=== PATIENT | male | born 1955 | race Caucasian/White ===

== ENCOUNTER 2018-03-04 16:18 | Emergency (ER) | payer SELFPAY ==
--- NOTE | 2018-03-04 17:37 | EDM.PDOC ---
ED HPI GENERAL MEDICAL PROBLEM - General Chief Complaint: General Stated Complaint: BALANCE OFF,NUMBNESS IN FEET Time Seen by Provider: 03/04/18 17:00 Source of Information: Reports: Patient, Family History Limitations: Reports: No Limitations - History of Present Illness INITIAL COMMENTS - FREE TEXT/NARRATIVE: Isra presents today with complaints of feeling unsteady with ambulation. States he feels as though his "equilibrium is off" over the past few days. Reports associated numbness on the plantar surface of both feet. Denies any falls, seizures, or loss of consciousness. Reports a prior history of a brain tumor which was removed a number of years ago. He has not followed up with CTs as directed, and the last one was approximately four years ago. He is also concerned about a possible blood clot in his left leg. Reports that there was a large area of redness over the medial aspect above his knee, with significant lower extremity edema of the left leg. He was not seen for this, and feels that his symptoms have since resolved. - Related Data Allergies Allergy/AdvReac Type Severity Reaction Status Date / Time No Known Allergies Allergy Verified 03/04/18 16:42 Home Meds: Home Meds NK [No Known Home Meds] 03/04/18 [History] Past Medical History Cardiovascular History: Reports: High Cholesterol Musculoskeletal History: Reports: Back Pain, Chronic Neurological History: Reports: Seizure, Vertigo Psychiatric History: Reports: Anxiety, Depression Oncologic (Cancer) History: Reports: Brain - Past Surgical History GI Surgical History: Reports: Colonoscopy Neurological Surgical History: Reports: Other (See Below) Other Neurological Surgeries/Procedures: brain tumor, had chemo/radiation Oncologic Surgical History: Reports: Other (See Below) Other Oncologic Surgeries/Procedures: tumor removal in the . chemo/ radiation Social & Family History - Tobacco Use Smoking Status *Q: Never Smoker - Alcohol Use Days Per Week of Alcohol Use: 4 Number of Drinks Per Day: 2 Total Drinks Per Week: 8 - Recreational Drug Use Recreational Drug Use: No ED ROS GENERAL - Review of Systems Review Of Systems: See Below Constitutional: Reports: Weakness, Fatigue, Decreased Appetite. Denies: Fever, Chills HEENT: Reports: Glasses, Vision Change. Denies: Hearing Loss, Throat Pain, Throat Swelling Respiratory: Denies: Shortness of Breath, Pleuritic Chest Pain, Cough Cardiovascular: Reports: Palpitations. Denies: Chest Pain, Claudication, Dyspnea on Exertion Endocrine: Reports: Fatigue GI/Abdominal: Denies: Abdominal Pain, Constipation, Diarrhea, Nausea, Vomiting : Reports: Frequency, Urgency. Denies: Dysuria, Hematuria Musculoskeletal: Reports: Other (Weakness to bilateral lower extremities with ambulation, unsteadiness. ) Skin: Denies: Bruising, Rash, Erythema, Wound, Change in Color, Lesions Neurological: Reports: Numbness (Bottom of feet), Tingling (Bottom of feet), Difficulty Walking, Weakness, Gait Disturbance. Denies: Confusion, Seizure, Syncope, Trouble Speaking Psychiatric: Reports: Anxiety. Denies: Confusion, Depression Hematologic/Lymphatic: Reports: No Symptoms. Denies: Swollen Glands Immunologic: Reports: No Symptoms ED EXAM, GENERAL - Physical Exam Exam: See Below Free Text/Narrative:: Isra presents today for complaints of feeling unsteady with ambulation. He also complains of generalized weakness, not feeling like himself. He denies fever, chills, headache or change in bowel/bladder habits. He reports a past history of brain tumor. Exam Limited By: No Limitations General Appearance: Alert, No Apparent Distress, Anxious Eye Exam: Right Eye: Other (Very slight nystagmus noted with left eye), Bilateral Eye: EOMI, Normal Fundi, Normal Inspection, PERRL Ears: Normal Canal, Hearing Grossly Normal, Normal TMs Ear Exam: Bilateral Ear: Auricle Normal, Canal Normal, TM normal Throat/Mouth: Normal Inspection, Normal Oropharynx, Normal Voice, No Airway Compromise Head: Atraumatic, Normocephalic Neck: Normal Inspection, Full Range of Motion. No: Lymphadenopathy (R), Lymphadenopathy (L) Respiratory/Chest: No Respiratory Distress, Lungs Clear, Normal Breath Sounds, No Accessory Muscle Use, Chest Non-Tender Cardiovascular: Normal Peripheral Pulses, Regular Rate, Rhythm, No Edema, No Gallop, No Murmur, No Rub Peripheral Pulses: 2+: Brachial (L), Brachial (R), Dorsalis Pedis (L), Dorsalis Pedis (R) GI/Abdominal: Normal Bowel Sounds, Soft, Non-Tender, No Organomegaly, No Distention Back Exam: Normal Inspection, Full Range of Motion. No: CVA Tenderness (R), CVA Tenderness (L) Extremities: Normal Inspection, Normal Range of Motion, Non-Tender, No Pedal Edema, Other (noted sunburn to bilateral lower extremities). No: Kinsey's Sign, Leg Pain, Increased Warmth Neurological: Alert, Oriented, CN II-XII Intact, Normal Cognition, Abnormal Gait , Sensory/Motor Deficit (Numbness of both feet), Other (Patient unsteady with gait and balance, gait is shuffling at times. ) Psychiatric: Anxious Skin Exam: Warm, Dry, Intact Lymphatic: No Adenopathy EKG INTERPRETATION EKG Date: 03/04/18 Time: 17:39 Rhythm: NSR Rate (Beats/Min): 59 Cascade: Normal P-Wave: Present QRS: Normal ST-T: Normal QT: Normal Course - Vital Signs Last Recorded V/S: Last Vital Signs Temp 36.1 C 03/04/18 16:43 Pulse 66 03/04/18 16:43 Resp 16 03/04/18 16:43 BP 160/84 H 03/04/18 16:43 Pulse Ox 99 03/04/18 16:43 - Orders/Labs/Meds Orders: Active Orders 24 hr Category Date Time Status EKG Documentation Completion [RC] ASDIRECTED Care 03/04/18 17:36 Active UA W/MICROSCOPIC [URIN] Stat Lab 03/04/18 17:38 Ordered EKG 12 Lead [EK] Routine Ther 03/04/18 17:35 Ordered Labs: Laboratory Tests 03/04/18 03/04/18 03/04/18 Range/Units 17:34 17:38 18:10 WBC 7.0 (4.5-11.0) K/uL RBC 5.28 (4.30-5.90) M/uL Hgb 15.8 H (12.0-15.0) g/dL Hct 44.2 (40.0-54.0) % MCV 84 (80-98) fL MCH 30 (27-31) pg MCHC 36 (32-36) % Plt Count 203 (150-400) K/uL Neut % (Auto) 72 H (36-66) % Lymph % (Auto) 20 L (24-44) % [place] % (Auto) 7 H (2-6) % Eos % (Auto) 1 L (2-4) % Baso % (Auto) 0 (0-1) % D-Dimer, Quantitative (0.0-400.0) ng/mL Sodium 138 L (140-148) mmol/L Potassium 4.1 (3.6-5.2) mmol/L Chloride 104 (100-108) mmol/L Carbon Dioxide 27 (21-32) mmol/L Anion Gap 11.1 (5.0-14.0) mmol/L BUN 16 (7-18) mg/dL Creatinine 1.1 (0.8-1.3) mg/dL Est Cr Clr Drug Dosing 75.44 mL/min Estimated GFR (MDRD) > 60 (>60) Glucose 98 (74-106) mg/dL Hemoglobin A1c (4.5-6.2) % Calcium 8.6 (8.5-10.1) mg/dL Magnesium 1.8 (1.8-2.4) mg/dL Total Bilirubin 0.6 (0.2-1.0) mg/dL AST 20 (15-37) U/L ALT 29 (12-78) U/L Alkaline Phosphatase 49 (46-116) U/L Total Protein 6.8 (6.4-8.2) g/dL Albumin 3.6 (3.4-5.0) g/dL Globulin 3.2 (2.3-3.5) g/dL Albumin/Globulin Ratio 1.1 L (1.2-2.2) TSH, Ultra Sensitive 1.980 (0.358-3.740) uIU/mL Urine Color Yellow Urine Appearance Clear Urine pH 7.0 (4.5-8.0) Ur Specific [place] 1.010 (1.008-1.030) Urine Protein Negative (NEGATIVE) mg/dL Urine Glucose (UA) Normal (NEGATIVE) mg/dL Urine Ketones Negative (NEGATIVE) mg/dL Urine Occult Blood Negative (NEGATIVE) Urine Nitrite Negative (NEGAITVE) Urine Bilirubin Negative (NEGATIVE) Urine Urobilinogen Normal (NORMAL) mg/dL Ur Leukocyte Esterase Negative (NEGATIVE) Urine RBC 0-5 (0-5) Urine WBC 0-5 (0-5) Ur Epithelial Cells Rare Amorphous Sediment Few Urine Bacteria Few Urine Mucus Few 03/04/18 03/04/18 Range/Units 18:10 18:10 WBC (4.5-11.0) K/uL RBC (4.30-5.90) M/uL Hgb (12.0-15.0) g/dL Hct (40.0-54.0) % MCV (80-98) fL MCH (27-31) pg MCHC (32-36) % Plt Count (150-400) K/uL Neut % (Auto) (36-66) % Lymph % (Auto) (24-44) % [place] % (Auto) (2-6) % Eos % (Auto) (2-4) % Baso % (Auto) (0-1) % D-Dimer, Quantitative < 100 (0.0-400.0) ng/mL Sodium (140-148) mmol/L Potassium (3.6-5.2) mmol/L Chloride (100-108) mmol/L Carbon Dioxide (21-32) mmol/L Anion Gap (5.0-14.0) mmol/L BUN (7-18) mg/dL Creatinine (0.8-1.3) mg/dL Est Cr Clr Drug Dosing mL/min Estimated GFR (MDRD) (>60) Glucose (74-106) mg/dL Hemoglobin A1c 5.8 (4.5-6.2) % Calcium (8.5-10.1) mg/dL Magnesium (1.8-2.4) mg/dL Total Bilirubin (0.2-1.0) mg/dL AST (15-37) U/L ALT (12-78) U/L Alkaline Phosphatase (46-116) U/L Total Protein (6.4-8.2) g/dL Albumin (3.4-5.0) g/dL Globulin (2.3-3.5) g/dL Albumin/Globulin Ratio (1.2-2.2) TSH, Ultra Sensitive (0.358-3.740) uIU/mL Urine Color Urine Appearance Urine pH (4.5-8.0) Ur Specific [place] (1.008-1.030) Urine Protein (NEGATIVE) mg/dL Urine Glucose (UA) (NEGATIVE) mg/dL Urine Ketones (NEGATIVE) mg/dL Urine Occult Blood (NEGATIVE) Urine Nitrite (NEGAITVE) Urine Bilirubin (NEGATIVE) Urine Urobilinogen (NORMAL) mg/dL Ur Leukocyte Esterase (NEGATIVE) Urine RBC (0-5) Urine WBC (0-5) Ur Epithelial Cells Amorphous Sediment Urine Bacteria Urine Mucus Patient lab work reviewed, no acute findings noted. - Re-Assessments/Exams Free Text/Narrative Re-Assessment/Exam: 03/04/18 Upon examination, CT of head recommended to patient and his significant other refused Head CT. Officer notified of patient status, he agrees with plan. Patient offered a head CT again, he declined. 03/04/18 18:30 Repeat blood pressure 140/79, HR 62 BPM Departure - Departure Time of Disposition: 19:14 Disposition: Home, Self-Care 01 Condition: Fair Clinical Impression: Unsteady gait, History of brain tumor - Discharge Information Instructions: Weakness, [id number] Referrals: PCP,None [Primary Care Provider] - Forms: ED Department Discharge Additional Instructions: You have been evaluated in the emergency room today for complaints of possible blood clot to the leg, unsteady gait and unsteady balance. Your lab work did not show any acute findings. D-dimer - negative Keep yourself hydrated with plenty of fluids. The best care for you would be to have immediate brain imaging. For your safety, be careful using stairs, driving or performing tasks that could cause you to lose your balance and fall. Follow up with your primary provider in the next 7 to 10 days. Follow up with [facility] neurology for your neurological symptoms as soon as possible. Return at any time for worsening, issues or concerns. - My Orders Last 24 Hours: My Active Orders 03/04/18 17:35 EKG 12 Lead [EK] Routine 03/04/18 17:36 EKG Documentation Completion [RC] ASDIRECTED 03/04/18 17:38 UA W/MICROSCOPIC [URIN] Stat - Assessment/Plan Last 24 Hours: My Active Orders 03/04/18 17:35 EKG 12 Lead [EK] Routine 03/04/18 17:36 EKG Documentation Completion [RC] ASDIRECTED 03/04/18 17:38 UA W/MICROSCOPIC [URIN] Stat Assessment:: Unsteady gait History of brain tumor Plan: Patient evaluated in the emergency room today for complaints of possible blood clot to the leg, unsteady gait and unsteady balance. Patient and his significant other refused CT of head x 3 different occasions. D-dimer - negative Keep hydrated with plenty of fluids. The best care would be to have immediate brain imaging. For his safety, be careful using stairs, driving or performing tasks that could cause him to lose balance and fall. Follow up with primary provider in the next 7 to 10 days. Follow up with [facility] neurology for neurological symptoms as soon as possible. Return at any time for worsening, issues or concerns.
== END 2018-03-04 19:27 | disposition home or self-care (01) ==
LOC: JP.ED 16:18
DX: R26.81 Unsteadiness on feet (principal); H55.00 Unspecified nystagmus; Z86.69 Personal history of other diseases of the nervous system and sense organs
CPT/HCPCS: 36415; 80053; 81001; 83036; 83735; 84443; 85025; 85379; 93005; 99283; 99284-25